=== PATIENT | female | born 1950 | race Caucasian/White ===

== ENCOUNTER → 2017-01-21 | Outpatient (CLI) | payer MEDICARE, OTHER | LOC: WI 13:02 | PROVIDERS: ATTEND Obstetrics & Gynecology Gynecology | DX: Z12.31 Encounter for screening mammogram for malignant neoplasm of breast (principal); M81.0 Age-related osteoporosis without current pathological fracture; M81.8 Other osteoporosis without current pathological fracture | CPT/HCPCS: 77080; G0202; 77067 ==

== ENCOUNTER 2017-07-28 15:45 | Day surgery (SDC) | payer MEDICARE, OTHER ==
[~2017-07-28 15:45] MED LIST: EPINEPHRINE INJ 1 MG/10 ML DISP.SYRIN ONE; FENTANYL CITRATE INJ/PF 100 MCG/2 ML AMPUL ONE; FLUMAZENIL INJ 0.5 MG/5 ML VIAL ONE; GLUCAGON,HUMAN RECOMB 1 MG INJ ONE; NALOXONE HCL INJ/PF 0.4 MG/1 ML SDV ONE
[2017-07-28] MEDS: MIDAZOLAM 2 MG/2 ML INJ ONE ×3 (17:14→17:42)
--- NOTE | 2017-07-28 18:11 | Operative Report ---
Operative Report DATE OF SURGERY: 07/28/17 Operative Report: Pre-op diagnosis: History of familial adenomatous polyposis rule out duodenal polyps Post-op diagnosis: Duodenal polyps Surgery: Esophagogastroduodenoscopy with biopsy and polypectomy Medications: Versed 4.5mg Fentanyl 100mcg IV push Tissue removed: Biopsy and polypectomy of duodenal polyps Procedure: After informed consent obtained from patient, the throat was sprayed with Hurricane and conscious sedation was achieved. The ERCP endoscope was inserted into the esophagus under direct vision and advanced into the stomach. It was difficult to navigate the duodenum with the side-viewing scope. After examination with the ERCP scope this was pulled out and replaced with the regular EGD scope. Detailed examination was performed of the proximal small bowel. Patient tolerated procedure well. Findings Esophagus: Normal Z-line at: 38 cm Antrum: Normal Body: Normal Fundus: Normal Duodenum: With a front viewing scope there was a 4-5 mm polyp noted in the second part of duodenum just beyond the bulb. This was removed with a hot snare. There was an area of irritation/mucosa break with edema vs polyp noted in the first part of duodenum. The irritation may have been caused by the side- viewing scope. Biopsy was taken to be sure this was not a polyp. Plan: Await pathology. If the first part of duodenum polyp is adenomatous EGD will be repeated with a front viewing scope. Continue PPI OPERATION: .
[2017-07-28 19:00] VITALS: BP 120/68
== END 2017-07-28 19:00 | disposition home or self-care (01) ==
LOC: END 15:45
PROVIDERS: ATTEND Internal Medicine Gastroenterology
PROC: 0DB98ZX Excision of Duodenum, Via Natural or Artificial Opening Endoscopic, Diagnostic (ICD-10-PCS; principal; 2017-07-28 16:15)
DX: K29.80 Duodenitis without bleeding (principal); K31.7 Polyp of stomach and duodenum; E11.9 Type 2 diabetes mellitus without complications; I10 Essential (primary) hypertension; Z79.899 Other long term (current) drug therapy; Z88.8 Allergy status to other drugs, medicaments and biological substances
CPT/HCPCS: 43251; 88305 ×2; J2250; J3010; 43239; J0171; J1610; J2310; J3490

== ENCOUNTER → 2017-12-08 | Outpatient (CLI) | payer MEDICARE, OTHER ==
--- NOTE | 2017-12-08 16:27 | RADIOLOGY REPORT (SQ) ---
EXAM DESCRIPTION: CAROTID DOPPLER COMPLETED DATE/TIME: 12/08/2017 4:00 pm REASON FOR STUDY: BRUIT R09.89 OTH SYMPTOMS AND SIGNS INVOLVING THE CIRC AND RESP SY COMPARISON: None. TECHNIQUE: Grayscale ultrasound, Doppler velocity and spectra, and color Doppler images acquired of the extra-cranial carotid and vertebral arteries. Images stored on PACS. LIMITATIONS: None. FINDINGS: RIGHT CAROTID CCA Velocities: Within normal limits. ICA Velocities Peak systolic 1.06 m/s. End diastolic 0.37 m/s. Proximal ICA/CCA peak systolic ratio 1.5. Spectra normal. No significant plaque. LEFT CAROTID CCA Velocities: Within normal limits. ICA Velocities Peak systolic 1.45 m/s. End diastolic 0.64 m/s. Proximal ICA/CCA peak systolic ratio 2.2. Spectra normal. No significant plaque. VERTEBRAL ARTERIES: Antegrade flow. Normal waveforms. SUBCLAVIAN ARTERIES: No finding. OTHER: No other significant finding. IMPRESSION: There is increased flow velocity in the left internal carotid artery consistent with a 5 0 to 69% stenosis. No other hemodynamically significant stenoses are identified. COMMENT: Quality ID #195: Velocity criteria are extrapolated from the diameter data as defined by t he Society of Radiologists in Ultrasound Consensus Conference. Radiology 2003: 229; 340-346. TECHNICAL DOCUMENTATION: JOB ID: [id number] [employer]- All Rights Reserved Reading location - IP/workstation name: [email or web address]
== END ==
LOC: SP 14:54
PROVIDERS: ATTEND Internal Medicine Cardiovascular Disease
DX: R09.89 Other specified symptoms and signs involving the circulatory and respiratory systems (principal)
CPT/HCPCS: 93880

== ENCOUNTER → 2018-01-25 | Outpatient (CLI) | payer MEDICARE, OTHER ==
--- NOTE | 2018-01-27 10:36 | WOMENS IMAGING REPORT ---
EXAM DESCRIPTION: 3D SCREENING MAMMO BILAT COMPLETED DATE/TIME: 01/25/2018 8:41 am REASON FOR STUDY: ROUTINE SCREENING;Z12.31 Z12.31 ENCNTR SCREEN MAMMOGRAM FOR MALIGNANT NEOPLASM OF ASHU COMPARISON: [id number] TECHNIQUE: Standard craniocaudal and mediolateral oblique views of each breast recorded using digita l acquisition and breast tomosynthesis. LIMITATIONS: None. FINDINGS: No masses, calcifications or architectural distortion. No areas of suspicion. Read with the assistance of CAD. .[facility] - R2 Cenova Version 1.3 .[facility] - R2 Cenova Version 1.3 .[facility] - R2 Cenova Version 2.4 .[facility] [place] R2 Cenova Version 2.4 .[facility] - R2 Ironmolder Version 9.2 IMPRESSION: NORMAL MAMMOGRAM. BIRADS 1. BREAST DENSITY: b. There are scattered areas of fibroglandular density. BIRAD: 1 NEGATIVE RECOMMENDATION: ROUTINE SCREENING COMMENT: The patient has been notified of the results by letter per SA requirements. Additional no tification policies are in place for contacting patient with suspicious or incomplete findings. Quality ID #225: The [employer] recommends an annual screening mammogram for women aged 40 years or over. This facility utilizes a reminder system to ensure that all patients receive reminder letters, and/or direct phone calls for appointments. This includes reminders for routine scr eening mammograms, diagnostic mammograms, or other Breast Imaging Interventions when appropriate. Th is patient will be placed in the appropriate reminder system. The [employer] (ACR) has developed recommendations for screening MRI of the breast s in certain patient populations, to be used in conjunction with mammography. Breast MRI surveillanc e may be appropriate for women with more than 20% lifetime risk of developing breast cancer as deter mined by genetic testing, significant family history of the disease, or history of mantle radiation f or Hodgkins Disease. ACR Practice Guidelines 2008. DBT Technology DBT is a type of tomographic mammography. With conventional mammography, overlapping breast tissue ma y make lesions difficult to detect, even with good compression. DBT uses an x-ray tube that rotates a round the breast, taking images at different angles. These images are then combined to create thin sl ices of the breast that the radiologist can view as a 3D reconstruction. The Digifeye unit can perform full-field digital mammograms (2D imaging); or DBT (3D imaging); or both, in a combination mode that quickly performs both the mammogram and the tomosynthesis scan while the breast is still compressed. PQRS 6045F: Fluoroscopic imaging is not utilized for breast tomosynthesis. TECHNICAL DOCUMENTATION: FINDING NUMBER: (1) ASSESSMENT: (1) JOB ID: [id number] [employer]- All Rights Reserved Reading location - IP/workstation name: [email or web address]
== END ==
LOC: WI 08:33
PROVIDERS: ATTEND Obstetrics & Gynecology Gynecology
DX: Z12.31 Encounter for screening mammogram for malignant neoplasm of breast (principal)
CPT/HCPCS: 77063; 77067

== ENCOUNTER 2018-03-14 23:06 | Observation (INO) | payer MEDICARE, OTHER ==
[2018-03-14 23:34] LABS: ABSOLUTE EOSINOPHILS # (AUTO) 0.2 10^3/uL (0.0-0.6); ABSOLUTE LYMPHOCYTES (AUTO) 2.1 10^3/uL (0.5-4.7); ABSOLUTE MONOCYTES (AUTO) 0.7 10^3/uL (0.1-1.4); ABSOLUTE NEUT (AUTO) 4.4 10^3/uL (1.7-8.2); BASOPHILS % (AUTO) 0.3 % (0-2); EOSINOPHILS % (AUTO) 3.1 % (0-6); HEMATOCRIT 39.2 % (36.0-47.0); HEMOGLOBIN 12.7 g/dL (12.0-15.5); LYMPHOCYTES % (AUTO) 28.1 % (13-45); MEAN CORPUSCULAR HEMOGLOBIN 26.2 pg (27.0-33.4); MEAN CORPUSCULAR HGB CONC 32.4 g/dL (32.0-36.0); MEAN CORPUSCULAR VOLUME 81 fl (80-97); MONOCYTES % (AUTO) 8.9 % (3-13); PLATELET COUNT 162 10^3/uL (150-450); RED BLOOD COUNT 4.86 10^6/uL (3.72-5.28); RED CELL DISTRIBUTION WIDTH 14.5 % (11.5-14.0); SEGMENTED NEUTROPHILS % (AUTO) 59.6 % (42-78); TOTAL CELLS COUNTED % (AUTO) 100 %; WHITE BLOOD COUNT 7.3 10^3/uL (4.0-10.5)
--- NOTE | 2018-03-14 23:47 | ER Document Report ---
ED Cardiac - General Mode of Arrival: Ambulatory Information source: Patient TRAVEL OUTSIDE OF THE [place] IN LAST 30 DAYS: No <JOSEPH GU - Last Filed: 03/15/18 04:15> <KARTIK MCCRACKEN - Last Filed: 03/15/18 04:16> - General Chief Complaint: Chest Pain Stated Complaint: CHEST PAIN Time Seen by Provider: 03/14/18 23:28 Notes: 67 y.o. female with HTN, palpitations, familial polyposis, colostomy bag and a PMHx of uterine cancer reports to the ED with pain to her LT breast. Pt reports that her pain is constant and describes it as more of a "soreness", denying any sharp pain or radiation to her back or upper extremities. Pt reports that she has been eating today without any change in her pain. She denies any nausea, vomiting or problems/changes in colostomy output. Pt was given 4 81mg Aspirin and 2 doses of Nitroglycerin upon arrival to the ED. She denies any relief from pain due to the Nitroglycerine. Denies any RIVERS currently. Pt's PCP is Dr. Diamond. Pt denies any Hx of DM, HLD or AL. She reports having a nuclear stress test scheduled in June with a doctor in [place]. (JOSEPH GU) - Related Data Allergies/Adverse Reactions: escitalopram oxalate [From Lexapro] Allergy (Severe, Verified 07/28/17 16:04) "THROAT CLOSING,HEAT ON NECK" Past Medical History - General Information source: Patient - Social History Smoking Status: Never Smoker Chew tobacco use (# tins/day): No Frequency of alcohol use: None Drug Abuse: None Family History: Reviewed & Not Pertinent Patient has suicidal ideation: No Patient has homicidal ideation: No - Past Medical History Cardiac Medical History: Reports: Hx Hypertension Pulmonary Medical History: Reports: Hx Pneumonia Renal/ Medical History: Denies: Hx Peritoneal Dialysis Past Surgical History: Reports: Hx Bowel Surgery, Hx Section, Hx Hysterectomy - Immunizations Hx Diphtheria, Pertussis, Tetanus Vaccination: No Hx Pneumococcal Vaccination: 12/20/13 <JOSEPH GU - Last Filed: 03/15/18 04:15> Review of Systems - Review of Systems Constitutional: No symptoms reported EENT: No symptoms reported Cardiovascular: See HPI, Other - Pain possibly to the LT chest wall/LT breast Respiratory: No symptoms reported Gastrointestinal: See HPI. denies: Nausea, Vomiting, Poor appetite - eating today Genitourinary: No symptoms reported Female Genitourinary: No symptoms reported Musculoskeletal: denies: Back pain Skin: No symptoms reported Hematologic/Lymphatic: No symptoms reported Neurological/Psychological: No symptoms reported -: Yes All other systems reviewed and negative <JOSEPH GU - Last Filed: 03/15/18 04:15> Physical Exam <JOSEPH GU - Last Filed: 03/15/18 04:15> <KARTIK MCCRACKEN - Last Filed: 03/15/18 04:16> - Vital signs Vitals: Pulse Ox 97 03/14/18 23:17 - Notes Notes: PHYSICAL EXAM GENERAL: Alert, interacts well. No acute distress. HEAD: Normocephalic, atraumatic. EYES: Pupils equal, round, and reactive to light. Extraocular movements intact. ENT: Oral mucosa moist, tongue midline. NECK: Full range of motion. Supple. Trachea midline. LUNGS: Clear to auscultation bilaterally, no wheezes, rales, or rhonchi. No respiratory distress. HEART: Regular rate and rhythm. No murmurs, gallops, or rubs. TTP across her anterior LT sided rib cage, approximately ribs 8 and 9 in the midclavicular line. ABDOMEN: Colostomy in good position to the RT side of Abd. Scars consistent with prior surgeries. Cachectic. Soft, non-tender. Non-distended. Bowel sounds present in all 4 quadrants. No guarding, rebound, or rigidity. EXTREMITIES: Moves all 4 extremities spontaneously. No edema, radial and dorsalis pedis pulses 2/4 bilaterally. No cyanosis. NEUROLOGICAL: Alert and oriented x3. Normal speech. PSYCH: Normal affect, normal mood. SKIN: Warm, dry, normal turgor. No rashes or lesions noted. (JOSEPH GU) Course - Laboratory Result Diagrams: 03/14/18 22:49 03/14/18 22:49 <JOSEPH GU - Last Filed: 03/15/18 04:15> - Laboratory Result Diagrams: 03/14/18 22:49 03/14/18 22:49 <KARTIK MCCRACKEN - Last Filed: 03/15/18 04:16> - Re-evaluation Re-evalutation: 03/15/18 01:22 CBC unremarkable, CMP grossly unremarkable, cardiac enzymes negative, chest x- ray negative, EKG is nonischemic. Patient has moderate risk factors including family history, hypertension and known carotid plaques. Patient was discussed with Dr. Lyon who will bring the patient under observation status for chest pain rule out. (KARTIK MCCRACKEN) - Vital Signs Vital signs: Temp Pulse Resp BP Pulse Ox 98.2 F 73 16 138/88 H 98 03/15/18 03:20 03/15/18 03:20 03/15/18 03:20 03/15/18 03:20 03/15/18 03:20 - Laboratory Laboratory results interpreted by me: 03/14/18 03/14/18 22:49 22:49 MCH 26.2 L RDW 14.5 H Glucose 120 H Calcium 10.4 H AST 38 H Alkaline Phosphatase 131 H - EKG Interpretation by Me Additional EKG results interpreted by me: 03/15/18 01:22 EKG shows sinus rhythm at a rate of 90, 1 PVC, no ST segment elevations or depressions, nonspecific T-wave inversions in lead III, flattening in aVF, no ST segment elevations or depressions, borderline R-wave progression becomes isoelectric in V4 per my interpretation. (KARTIK MCCRACKEN) Discharge <JOSEPH GU - Last Filed: 03/15/18 04:15> - Discharge Admitting Provider: Alan - [facility] Unit Admitted: Telemetry <KARTIK MCCRACKEN - Last Filed: 03/15/18 04:16> - Discharge Clinical Impression: Chest pain, rule out acute myocardial infarction, Familial adenomatous polyposis Condition: Good Disposition: ADMITTED OBSERVATION Scribe Attestation: 03/15/18 04:16 I personally performed the services described in the documentation, reviewed and edited the documentation which was dictated to the scribe in my presence, and it accurately records my words and actions. (KARTIK MCCRACKEN) Scribe Documentation - Scribe Written by Vero:: Vero Ruff 03/14/18 [id number] acting as scribe for :: Yunier <JOSEPH GU - Last Filed: 03/15/18 04:15>
[2018-03-14 23:48] LABS: ALANINE AMINOTRANSFERASE 44 U/L (9-52); ALBUMIN 4.3 g/dL (3.5-5.0); ALKALINE PHOSPHATASE 131 U/L (38-126); ANION GAP 11 (5-19); ASPARTATE AMINO TRANSFERASE 38 U/L (14-36); BILIRUBIN,DIRECT 0.2 mg/dL (0.0-0.4); BILIRUBIN,TOTAL 0.6 mg/dL (0.2-1.3); BLOOD UREA NITROGEN 20 mg/dL (7-20); CALCIUM 10.4 mg/dL (8.4-10.2); CARBON DIOXIDE 25 mmol/L (22-30); CHLORIDE 107 mmol/L (98-107); CREATINE KINASE 80 U/L (30-135); GLUCOSE 120 mg/dL (75-110); POTASSIUM 4.4 mmol/L (3.6-5.0); SODIUM 143.2 mmol/L (137-145); TOTAL PROTEIN 7.2 g/dL (6.3-8.2)
[2018-03-15] LABS: CREATINE KINASE MB 2.16 ng/mL (<4.55)
--- NOTE | 2018-03-15 00:02 | EKG REPORT ---
SEVERITY:- ABNORMAL ECG - SINUS ARRHYTHMIA, RATE 82-99 VENTRICULAR PREMATURE COMPLEX CONSIDER RIGHT VENTRICULAR HYPERTROPHY BORDERLINE R WAVE PROGRESSION, ANTERIOR LEADS : Confirmed by: Jolly Gee 15-Mar-2018 00:01:08
[2018-03-15 00:03] LABS: TROPONIN I < 0.012 ng/mL
[2018-03-15] MEDS ORDERED: NITROGLYCERIN 0.4 MG/TAB 25 TAB/BOTTLE SL PRN (01:23)
--- NOTE | 2018-03-15 03:19 | RADIOLOGY REPORT (SQ) ---
EXAM DESCRIPTION: XR CHEST 1 VIEW COMPLETED DATE/TME: 03/14/2018 23:12 CLINICAL HISTORY: 67 years Female, cp COMPARISON: 8.23.15 NUMBER OF VIEWS/TECHNIQUE: 1/AP FINDINGS: Emphysematous increased lung volume, clear parenchyma, normal cardiac silhouette, and intact bony thorax. IMPRESSION: No acute cardiopulmonary findings.
[2018-03-15 05:58] LABS: CHOLESTEROL 117.09 mg/dL (0-200); TRIGLYCERIDES 45 mg/dL (<150)
[2018-03-15 06:09] LABS: CREATINE KINASE MB 1.41 ng/mL (<4.55); DIRECT LDL 32 mg/dL (<100)
[2018-03-15 06:16] LABS: TROPONIN I < 0.012 ng/mL
--- NOTE | 2018-03-15 06:49 | PDOC H&P ---
History of Present Illness Admission Date/PCP: 03/15/18 01:27 DARIA ENG MD Patient complains of: Left-sided chest pain History of Present Illness: FRANCOIS WOOD is a 67 year old female with history of hypertension, depression, dyslipidemia and familial polyposis status post colectomy with colostomy. Patient presents with 6 hours of left-sided reproducible chest pain which is dull in nature worsened by deep breathing and movement associated with shortness of breath, no nausea vomiting or palpitations. Pain is persistent 2 out of 5 intensity. She denies previous episode or change in medications. Past Medical History Cardiac Medical History: Reports: Hypertension Pulmonary Medical History: Reports: Pneumonia Neurological Medical History: Denies: Seizures Psychiatric Medical History: Denies: Depression Hematology: Denies: Anemia Past Surgical History Past Surgical History: Reports: Section, Hysterectomy Social History Information Source: Patient, [facility] Records Smoking Status: Never Smoker Frequency of Alcohol Use: None Hx Recreational Drug Use: No Drugs: None Hx Prescription Drug Abuse: No - Advance Directive Resuscitation Status: Full Code Family History Family History: CAD, Other - Familial polyposis Parental Family History Reviewed: Yes Children Family History Reviewed: Yes Sibling(s) Family History Reviewed.: Yes Medication/Allergy Home Medications: Alendronate Sodium [Fosamax 10 Mg Tablet] 30 mg PO ASDIR PRN 10/31/14 Cholecalciferol (Vitamin D3) [Vitamin D3 5000 unit Capsule] 5,000 unit PO DAILY 10/31/14 Latanoprost [Xalatan 0.005% Oph Soln 2.5 ml] 1 drop OP QAM 10/31/14 Multivitamin [Multivitamins] 1 each PO DAILY 10/31/14 Atorvastatin Calcium 10 mg PO DAILY 07/27/17 Allergies/Adverse Reactions: escitalopram oxalate [From Lexapro] Allergy (Severe, Verified 07/28/17 16:04) "THROAT CLOSING,HEAT ON NECK" Review of Systems Constitutional: ABSENT: chills, fever(s), headache(s), weight gain, weight loss Eyes: ABSENT: visual disturbances Ears: ABSENT: hearing changes Cardiovascular: ABSENT: chest pain, dyspnea on exertion, edema, orthropnea, palpitations Respiratory: ABSENT: cough, hemoptysis Gastrointestinal: ABSENT: abdominal pain, constipation, diarrhea, hematemesis, hematochezia, nausea, vomiting Genitourinary: ABSENT: dysuria, hematuria Musculoskeletal: ABSENT: joint swelling Integumentary: ABSENT: rash, wounds Neurological: ABSENT: abnormal gait, abnormal speech, confusion, dizziness, focal weakness, syncope Psychiatric: ABSENT: anxiety, depression, homidical ideation, suicidal ideation Endocrine: ABSENT: cold intolerance, heat intolerance, polydipsia, polyuria Hematologic/Lymphatic: ABSENT: easy bleeding, easy bruising Physical Exam Vital Signs: Temp Pulse Resp BP Pulse Ox 98.2 F 73 16 138/88 H 98 03/15/18 03:20 03/15/18 03:20 03/15/18 03:20 03/15/18 03:20 03/15/18 03:20 Intake & Output 03/13/18 03/14/18 03/15/18 11:59 11:59 11:59 Weight 39.9 kg General appearance: PRESENT: no acute distress, well-developed, well-nourished Head exam: PRESENT: atraumatic, normocephalic Eye exam: PRESENT: conjunctiva pink, EOMI, PERRLA. ABSENT: scleral icterus Ear exam: PRESENT: normal external ear exam Mouth exam: PRESENT: moist, tongue midline Neck exam: ABSENT: carotid bruit, JVD, lymphadenopathy, thyromegaly Respiratory exam: PRESENT: clear to auscultation emil. ABSENT: rales, rhonchi, wheezes Cardiovascular exam: PRESENT: RRR, other - Chest wall pain to intercostal musculature anteriorly. ABSENT: diastolic murmur, rubs, systolic murmur Pulses: PRESENT: normal dorsalis pedis pul Vascular exam: PRESENT: normal capillary refill GI/Abdominal exam: PRESENT: normal bowel sounds, soft. ABSENT: distended, guarding, mass, organolmegaly, rebound, tenderness Rectal exam: PRESENT: deferred Extremities exam: PRESENT: full ROM. ABSENT: calf tenderness, clubbing, pedal edema Neurological exam: PRESENT: alert, awake, oriented to person, oriented to place , oriented to time, oriented to situation, CN II-XII grossly intact. ABSENT: motor sensory deficit Psychiatric exam: PRESENT: appropriate affect, normal mood. ABSENT: homicidal ideation, suicidal ideation Skin exam: PRESENT: dry, intact, warm. ABSENT: cyanosis, rash Results Laboratory Results: 03/15/18 05:04 Triglycerides 45 Cholesterol 117.09 LDL Cholesterol Direct 32 VLDL Cholesterol 9.0 L HDL Cholesterol 76 03/15/18 05:04 CK-MB (CK-2) 1.41 Troponin I < 0.012 Impressions: Chest X-Ray 03/14/18 23:12 IMPRESSION: No acute cardiopulmonary findings. Assessment & Plan - Diagnosis (1) Chest pain, rule out acute myocardial infarction Is this a current diagnosis for this admission?: Yes Plan: Chest pain care set, stress test (2) Hypertension Is this a current diagnosis for this admission?: Yes Plan: Optimize ELMER inhibitor (3) Dyslipidemia Is this a current diagnosis for this admission?: Yes Plan: Follow-up lipid profile - Time Time Spent: 30 to 50 Minutes - Inpatient Certification Medical Necessity: Need Close Monitoring Due to Risk of Patient Decompensation
[2018-03-15 08:24] VITALS: BP 150/75
[2018-03-15 09:12] LABS: CREATINE KINASE MB 1.49 ng/mL (<4.55)
[2018-03-15 09:13] LABS: TROPONIN I < 0.012 ng/mL
[2018-03-15] MEDS ORDERED: ATORVASTATIN CALCIUM 10 MG TABLET PO SCH (10:00)
[2018-03-15] MEDS ORDERED: REGADENOSON INJ 0.4 MG/5 ML DISP.SYRIN IV ONE (11:29)
--- NOTE | 2018-03-15 13:35 | PDOC DISCHARGE SUMMARY ---
General - Admit/Disc Date/PCP Admission Date/Primary Care Provider: 03/15/18 01:27 DARIA ENG MD Discharge Date: 03/15/18 - Discharge Diagnosis (1) Costochondral chest pain Is this a current diagnosis for this admission?: Yes (2) Dyslipidemia Is this a current diagnosis for this admission?: Yes (3) Hypertension Is this a current diagnosis for this admission?: Yes (4) Malnutrition of moderate degree Is this a current diagnosis for this admission?: Yes - Additional Information Resuscitation Status: Full Code Discharge Diet: Cardiac Discharge Activity: Activity As Tolerated Home Medications: Latanoprost [Xalatan 0.005% Oph Soln 2.5 ml] 1 drop OP QAM 10/31/14 Multivitamin [Multivitamins] 1 each PO Q2D 10/31/14 Atorvastatin Calcium 10 mg PO QHS 07/27/17 Lansoprazole [Prevacid] 30 mg PO DAILY 03/15/18 Magnesium Oxide [Magnesium] 400 mg PO Q2D 03/15/18 Valsartan [Diovan 40 mg Tablet] 20 mg PO Q12 03/15/18 History of Present Illness Patient complains of: Chest pain History of Present Illness: FRANCOIS WOOD is a 67 year old female with history of hypertension, depression, dyslipidemia and familial polyposis status post colectomy with colostomy. Patient presents with 6 hours of left-sided reproducible chest pain which is dull in nature worsened by deep breathing and movement associated with shortness of breath, no nausea vomiting or palpitations. Pain is persistent 2 out of 5 intensity. Hospital Course Hospital Course: Patient was admitted with chest pain to rule out an acute coronary syndrome. Was monitored on telemetry. Serial cardiac enzymes were done which were negative and she subsequently had a stress test done which has also been no reported negative. Her chest pain has been relieved and it is thought that the chest pain is likely secondary to costochondral origin as she had been moving boxes recently. Patient has remained hemodynamically stable and with a negative stress test and no further interventions been planned she is been discharged back home. She has been advised to follow-up with her primary care physician especially if chest pain persists Physical Exam Vital Signs: Temp Pulse Resp BP Pulse Ox 98.2 F 72 12 150/75 H 100 03/15/18 07:46 03/15/18 07:46 03/15/18 07:46 03/15/18 07:46 03/15/18 07:46 Intake & Output 03/14/18 03/15/18 03/16/18 06:59 06:59 06:59 Weight 39.9 kg General appearance: PRESENT: no acute distress, thin Head exam: PRESENT: atraumatic, normocephalic Eye exam: PRESENT: conjunctiva pink, EOMI, PERRLA. ABSENT: scleral icterus Ear exam: PRESENT: normal external ear exam Mouth exam: PRESENT: moist, tongue midline Neck exam: ABSENT: carotid bruit, JVD, lymphadenopathy, thyromegaly Respiratory exam: PRESENT: clear to auscultation emil. ABSENT: rales, rhonchi, wheezes Cardiovascular exam: PRESENT: RRR. ABSENT: diastolic murmur, rubs, systolic murmur Pulses: PRESENT: normal dorsalis pedis pul Vascular exam: PRESENT: normal capillary refill GI/Abdominal exam: PRESENT: normal bowel sounds, soft. ABSENT: distended, guarding, mass, organolmegaly, rebound, tenderness Rectal exam: PRESENT: deferred Extremities exam: PRESENT: full ROM. ABSENT: calf tenderness, clubbing, pedal edema Neurological exam: PRESENT: alert, awake, oriented to person, oriented to place , oriented to time, oriented to situation, CN II-XII grossly intact. ABSENT: motor sensory deficit Psychiatric exam: PRESENT: anxious, appropriate affect, normal mood. ABSENT: homicidal ideation, suicidal ideation Skin exam: PRESENT: dry, intact, warm. ABSENT: cyanosis, rash Results Laboratory Results: 03/15/18 05:04 Triglycerides 45 Cholesterol 117.09 LDL Cholesterol Direct 32 VLDL Cholesterol 9.0 L HDL Cholesterol 76 03/15/18 03/15/18 05:04 08:39 CK-MB (CK-2) 1.41 1.49 Troponin I < 0.012 < 0.012 Impressions: Chest X-Ray 03/14/18 23:12 IMPRESSION: No acute cardiopulmonary findings. Qualifiers - * PATIENT BEING DISCHARGED WITH ANY OF THE FOLLOWING DIAGNOSIS: No Plan Time Spent: Less than 30 Minutes
== END 2018-03-15 13:30 | disposition home or self-care (01) ==
LOC: ER 23:06 → EH 03-15 01:27 → 4N 03-15 03:15
PROVIDERS: ADMIT Internal Medicine; ATTEND Internal Medicine
DX: R07.1 Chest pain on breathing (principal); E78.5 Hyperlipidemia, unspecified; I10 Essential (primary) hypertension; E44.0 Moderate protein-calorie malnutrition; D12.6 Benign neoplasm of colon, unspecified; Z68.1 Body mass index [BMI] 19.9 or less, adult; Z79.899 Other long term (current) drug therapy; Z93.3 Colostomy status; Z90.49 Acquired absence of other specified parts of digestive tract; Z84.81 Family history of carrier of genetic disease; Z85.42 Personal history of malignant neoplasm of other parts of uterus; Z87.01 Personal history of pneumonia (recurrent); Z82.49 Family history of ischemic heart disease and other diseases of the circulatory system; Z90.710 Acquired absence of both cervix and uterus
CPT/HCPCS: 93005; 99285; 36415 ×2; 82553 ×2; 82550; 85025; 80053; 84484 ×2; 80061; 93017; 71045; 78452; 93010; A9500; J2785

== ENCOUNTER 2018-09-28 14:40 | Day surgery (SDC) | payer MEDICARE, OTHER ==
[2018-09-28] MEDS ORDERED: DIPHENHYDRAMINE HCL 50 MG/ML VIAL ONE (14:56)
[2018-09-28] MEDS ORDERED: FENTANYL CITRATE INJ/PF 100 MCG/2 ML AMPUL ONE (14:56)
[2018-09-28] MEDS ORDERED: ONDANSETRON HCL INJ/PF 4 MG/2 ML SDV ONE (14:56)
[2018-09-28] MEDS ORDERED: GLUCAGON,HUMAN RECOMB 1 MG INJ ONE (14:57)
[2018-09-28] MEDS ORDERED: EPINEPHRINE INJ 1 MG/10 ML DISP.SYRIN ONE (14:57)
[2018-09-28] MEDS ORDERED: FLUMAZENIL INJ 0.5 MG/5 ML VIAL ONE (14:57)
[2018-09-28] MEDS ORDERED: NALOXONE HCL INJ/PF 0.4 MG/1 ML SDV ONE (14:57)
[2018-09-28] MEDS: MIDAZOLAM 2 MG/2 ML INJ ONE ×2 (15:47→15:53)
--- NOTE | 2018-09-28 16:49 | Operative Report ---
Operative Report DATE OF SURGERY: 09/28/18 Operative Report: Pre-op diagnosis: History of family adenomatous polyposis and duodenal polyp.GERD Post-op diagnosis: Normal EGD Surgery: Esophagogastroduodenoscopy using an ERCP scope with biopsy Medications: Versed 3mg Fentanyl 100mcg IV push Tissue removed: Antral biopsy for pathology Procedure: After informed consent obtained from patient, the throat was sprayed with Hurricane and conscious sedation was achieved. The ERCP endoscope was inserted into the esophagus blindly and advanced into the stomach. The duodenum was entered and examined to the second part. Endoscope was then slowly pulled out of the patient as the mucosa was examined into details. Patient tolerated procedure well. Findings Esophagus: Normal Antrum: Normal Body: Normal Fundus: Normal Duodenum first part: Normal Duodenum second part: The bile duct opening was identified with bile flowing out of it. There was evidence for previous ampullectomy Plan: Await pathology. OPERATION: .
[2018-09-28 17:13] VITALS: BP 134/75
== END 2018-09-28 17:14 | disposition home or self-care (01) ==
LOC: END 14:40
PROVIDERS: ATTEND Internal Medicine Gastroenterology
DX: K29.50 Unspecified chronic gastritis without bleeding (principal); Z87.19 Personal history of other diseases of the digestive system; Z09 Encounter for follow-up examination after completed treatment for conditions other than malignant neoplasm
CPT/HCPCS: 43239; 88342 ×2; 88305 ×2; J2250; J3010; J0171; J1200; J1610; J2310; J2405; J3490

== ENCOUNTER → 2018-11-23 | Outpatient (CLI) | payer MEDICARE, OTHER ==
--- NOTE | 2018-11-23 16:16 | RADIOLOGY REPORT (SQ) ---
EXAM DESCRIPTION: CAROTID DOPPLER COMPLETED DATE/TIME: 11/23/2018 3:35 pm REASON FOR STUDY: BRUIT R09.89 OTH SYMPTOMS AND SIGNS INVOLVING THE CIRC AND RESP SY COMPARISON: Bilateral carotid Doppler 12/08/2017 TECHNIQUE: Grayscale ultrasound, Doppler velocity and spectra, and color Doppler images acquired of the extra-cranial carotid and vertebral arteries. Images stored on PACS. LIMITATIONS: None. FINDINGS: RIGHT CAROTID CCA Velocities: Within normal limits. Right common carotid artery peak systolic velocity 0.64 m/sec ICA Velocities Peak systolic 0.45 m/s. End diastolic 0.19 m/s. Proximal ICA/CCA peak systolic ratio normal. Spectra normal. No significant plaque. LEFT CAROTID CCA Velocities: Within normal limits. Left common carotid artery peak systolic velocity 0.9 m/sec ICA Velocities Peak systolic 0.51 m/s. End diastolic 0.2 m/s. Proximal ICA/CCA peak systolic ratio normal. Spectra normal. No significant plaque. VERTEBRAL ARTERIES: Antegrade flow. Normal waveforms. SUBCLAVIAN ARTERIES: Not evaluated OTHER: No other significant finding. IMPRESSION: NO HEMODYNAMICALLY SIGNIFICANT STENOSIS. COMMENT: Quality ID #195: Velocity criteria are extrapolated from the diameter data as defined by t he Society of Radiologists in Ultrasound Consensus Conference. Radiology 2003: 229; 340-346. TECHNICAL DOCUMENTATION: JOB ID: [id number] [employer]- All Rights Reserved Reading location - IP/workstation name: [email or web address]
== END ==
LOC: SP 17:04
PROVIDERS: ATTEND Internal Medicine Cardiovascular Disease
DX: R09.89 Other specified symptoms and signs involving the circulatory and respiratory systems (principal)
CPT/HCPCS: 93880

== ENCOUNTER 2019-01-25 02:25 | Emergency (ER) | payer MEDICARE, OTHER ==
[2019-01-25] MEDS ORDERED: KETOROLAC TROMETHAMINE INJ/PF 30 MG/1 ML SDV IV ONE ×2 (03:22→05:02)
[2019-01-25] MEDS ORDERED: ONDANSETRON HCL INJ/PF 4 MG/2 ML SDV IV ONE (03:22)
[2019-01-25] MEDS ORDERED: NORMAL SALINE 500 ML IV ONE (03:22)
--- NOTE | 2019-01-25 03:25 | ER Document Report ---
ED General - General Chief Complaint: Flank Pain Stated Complaint: RIGHT FLANK PAIN Time Seen by Provider: 01/25/19 03:19 Primary Care Provider: SOLE BELL MD [NO LOCAL MD] - Follow up as needed Notes: Patient is a pleasant 68-year-old female presents with complaint of right flank pain. Some nausea. No vomiting. She has a history of kidney stones and using her left side. She said this feels just like her previous kidney stone. States she has had some pressure with urination the last few days but no pain until tonight. No fevers. She does have a colostomy. Says colostomy has been there for 34 years. TRAVEL OUTSIDE OF THE [place] IN LAST 30 DAYS: No - Related Data Allergies/Adverse Reactions: escitalopram oxalate [From LexaprPerficient] Allergy (Severe, Verified 09/28/18 14:50) "THROAT CLOSING,HEAT ON NECK" Past Medical History - Social History Smoking Status: Never Smoker Frequency of alcohol use: None Drug Abuse: None Family History: CAD, Other Patient has suicidal ideation: No Patient has homicidal ideation: No - Past Medical History Cardiac Medical History: Reports: Hx Coronary Artery Disease, Hx Hypertension - HX. OF Denies: Hx Heart Attack Pulmonary Medical History: Reports: Hx Pneumonia - OVER 3 YRS AGO Denies: Hx Asthma, Hx Bronchitis, Hx COPD Neurological Medical History: Denies: Hx Cerebrovascular Accident, Hx Seizures Renal/ Medical History: Denies: Hx Peritoneal Dialysis Musculoskeletal Medical History: Denies Hx Arthritis Psychiatric Medical History: Denies: Hx Depression Past Surgical History: Reports: Hx Bowel Surgery, Hx Section, Hx Hysterectomy - Immunizations Hx Diphtheria, Pertussis, Tetanus Vaccination: No Hx Pneumococcal Vaccination: 12/20/13 Review of Systems - Review of Systems Notes: My Normal Review Basic REVIEW OF SYSTEMS: CONSTITUTIONAL : Denies fever, chills, or sweats. Denies recent illness. CARDIOVASCULAR: Denies chest pain. RESPIRATORY: Denies cough, cold, or chest congestion. Denies shortness of breath, difficulty breathing, or wheezing. GASTROINTESTINAL: Right Flank pain. Nausea but no vomiting. GENITOURINARY: Denies difficulty urinating, painful urination, burning, frequency, or blood in urine. MUSCULOSKELETAL: Denies neck or back pain or joint pain or swelling. SKIN: Denies rash or skin lesions. NEUROLOGICAL: Denies altered mental status or loss of consciousness. Denies headache. Denies weakness or paralysis or loss of use of either side. Denies problems with gait or speech. Denies sensory or motor loss. ALL OTHER SYSTEMS REVIEWED AND NEGATIVE. Physical Exam - Vital signs Vitals: Temp Resp Pulse Ox 97.7 F 18 97 01/25/19 02:29 01/25/19 02:29 01/25/19 02:29 - Notes Notes: General Appearance: Well nourished, alert, cooperative, no acute distress, moderate obvious discomfort. Vitals: reviewed, See vital signs table. Head: no swelling or tenderness to the head Eyes: PERRL, EOMI, Conjuctiva clear Lungs: No wheezing, No rales, No rhonci, No accessory muscle use, good air exchange bilaterally. Heart: Normal rate, Regular rythm, No murmur, no rub Abdomen: Normal BS, soft, No rigidity, no significant tenderness to palpation of the abdomen. Pain on the flank is not made worse with palpation., No guarding, no rebound, no abdominal masses, no organomegaly Extremities: good pulses in all extremities, no swelling or tenderness in the extremities, no edema. Skin: warm, dry, appropriate color, no rash Neuro: speech clear, oriented x 3, normal affect, responds appropriately to questions. Course - Re-evaluation Re-evalutation: 01/25/19 04:37 Patient says her pain continues well controlled. CT scan does confirm a centimeter kidney stone on the right side. Urine has a few white blood cells in it however she does not have nitrites, she only has trace bacteria in urine, she does not have significant leukocyte esterace, she does not have a leukocytosis and a blood work, she is afebrile. I therefore do not suspect infected kidney stone at this time. Still send her urine for culture to make sure it does not grow anything. I informed the patient that she must have a low threshold to return to ER if she has intractable pain, rectal vomiting, fevers, or any signs of infection. Informed her to call the urologist office to make a close follow- up appointment. Patient agrees with plan will be discharged home. Dictation of this chart was performed using voice recognition software; therefore, there may be some unintended grammatical errors. - Vital Signs Vital signs: Temp Pulse Resp BP Pulse Ox 97.7 F 18 141/78 H 99 01/25/19 02:29 01/25/19 02:29 01/25/19 02:31 01/25/19 02:31 - Laboratory Result Diagrams: 01/25/19 02:33 01/25/19 02:33 Laboratory results interpreted by me: 01/25/19 01/25/19 01/25/19 02:33 02:33 02:40 Hgb 11.7 L MCH 26.3 L RDW 14.4 H Potassium 3.4 L Chloride 110 H BUN 21 H Glucose 146 H AST 39 H Total Protein 5.8 L Albumin 3.2 L Urine Protein 100 H Urine Blood MODERATE H Ur Leukocyte Esterase SMALL H Discharge - Discharge Clinical Impression: Kidney stone on right side Condition: Good Disposition: HOME, SELF-CARE Additional Instructions: Your CT scan confirms that you have a kidney stone on the right side. Your kidney stone is 7 mm. It is possible you could pass the stone on your own, but is also possible that you may have a hard time passing this on your own. I therefore have given you the number to [facility] urology. The phone number is under the name Garry Lyon on your discharge paperwork. Please call this number and inform them that you would like an appointment at the [place] office. Please have a very low threshold to return to the ER if you have pain that is not controlled by the pain medicine we have prescribed you, if you have vomiting, fevers, or if you feel you are worsening in any way. Please be aware that [place] does have Tylenol (acetaminophen) in it. Please make sure you do not take more than 4000 mg of acetaminophen a day. Do not drive or care for children after you have taken this medication they will make you sleepy and sometimes impair judgment. Prescriptions: Hydrocodone/Acetaminophen [[place] 5-325 mg Tablet] 1 tab PO Q4 PRN #16 tablet PRN Reason: For Breakthrough Pain Ondansetron [Zofran Odt 4 mg Tablet] 1 tab PO Q4H PRN #15 tab.rapdis PRN Reason: For Nausea/Vomiting Tamsulosin HCl [Flomax 0.4 mg Cap.sr] 0.4 mg PO DAILY #7 cap.sr.24h Forms: Return to Work Referrals: GARRY LYON MD [NO LOCAL MD] - Follow up in 3-5 days
[2019-01-25 03:30] LABS: ABSOLUTE EOSINOPHILS # (AUTO) 0.4 10^3/uL (0.0-0.6); ABSOLUTE LYMPHOCYTES (AUTO) 2.8 10^3/uL (0.5-4.7); ABSOLUTE MONOCYTES (AUTO) 0.7 10^3/uL (0.1-1.4); ABSOLUTE NEUT (AUTO) 4.1 10^3/uL (1.7-8.2); BASOPHILS % (AUTO) 0.4 % (0-2); EOSINOPHILS % (AUTO) 5.3 % (0-6); HEMATOCRIT 36.3 % (36.0-47.0); HEMOGLOBIN 11.7 g/dL (12.0-15.5); LYMPHOCYTES % (AUTO) 35.1 % (13-45); MEAN CORPUSCULAR HEMOGLOBIN 26.3 pg (27.0-33.4); MEAN CORPUSCULAR HGB CONC 32.3 g/dL (32.0-36.0); MEAN CORPUSCULAR VOLUME 81 fl (80-97); MONOCYTES % (AUTO) 8.1 % (3-13); PLATELET COUNT 162 10^3/uL (150-450); RED BLOOD COUNT 4.46 10^6/uL (3.72-5.28); RED CELL DISTRIBUTION WIDTH 14.4 % (11.5-14.0); SEGMENTED NEUTROPHILS % (AUTO) 51.1 % (42-78); TOTAL CELLS COUNTED % (AUTO) 100 %; WHITE BLOOD COUNT 8.1 10^3/uL (4.0-10.5)
[2019-01-25 03:38] LABS: ALANINE AMINOTRANSFERASE 45 U/L (9-52); ALBUMIN 3.2 g/dL (3.5-5.0); ALKALINE PHOSPHATASE 121 U/L (38-126); ANION GAP 7 (5-19); ASPARTATE AMINO TRANSFERASE 39 U/L (14-36); BILIRUBIN,DIRECT 0.2 mg/dL (0.0-0.4); BILIRUBIN,TOTAL 0.4 mg/dL (0.2-1.3); BLOOD UREA NITROGEN 21 mg/dL (7-20); CALCIUM 9.8 mg/dL (8.4-10.2); CARBON DIOXIDE 23 mmol/L (22-30); CHLORIDE 110 mmol/L (98-107); GLUCOSE 146 mg/dL (75-110); POTASSIUM 3.4 mmol/L (3.6-5.0); SODIUM 140.2 mmol/L (137-145); TOTAL PROTEIN 5.8 g/dL (6.3-8.2)
[2019-01-25 03:39] LABS: APPEARANCE,URINE SLIGHTLY-CLOUDY; BILIRUBIN,URINE NEGATIVE (NEGATIVE); COLOR,URINE YELLOW; GLUCOSE, URINE NEGATIVE (NEGATIVE); KETONES,URINE NEGATIVE (NEGATIVE); LEUKOCYTE ESTERASE,URINE SMALL (NEGATIVE); NITRITE,URINE NEGATIVE (NEGATIVE); PROTEIN,URINE 100 mg/dL (NEGATIVE); URINE SPECIFIC GRAVITY 1.017; UROBILINOGEN,URINE NEGATIVE mg/dL (<2.0)
--- NOTE | 2019-01-25 04:15 | RADIOLOGY REPORT (SQ) ---
EXAM DESCRIPTION: CT ABDOMEN PELVIS WITHOUT IV CONTRAST COMPLETED DATE/TME: 01/25/2019 03:23 CLINICAL HISTORY: 68 years Female, right flank pain, Hx of colostomy Comparison: None. Technique: No contrast. Coronal and sagittal reformat. This exam was performed according to our departmental dose-optimization program, which includes automated exposure control, adjustment of the mA and/or kV according to patient size and/or use of iterative reconstruction technique.[facility]: Dose Right [facility]: CareDose [facility]: Dose Right [facility]: Teradose 4D [facility]: [employer] LIMITATIONS: None Findings: 0.7 x 0.4 x 0.3 cm right UVJ/bladder stone with mild right hydronephrosis and small right perinephric fat stranding. Small fluid inferior to the right kidney. Bilateral punctate nephrolithiasis. Likely benign renal cyst(s), not definitively characterized. Disc desiccation. Surgical clips of the left paracentral abdomen and throughout the pelvis. Developmental posterior medial angulation of bilateral, anterior lower ribs. Bowel ostomy at the right lower abdominal quadrant. No bowel obstruction. Small disc bulge at the L2-L3 and L5-S1 levels. Enostoses. Unenhanced lower thorax, abdominopelvic structures, and musculoskeleton appear otherwise grossly unremarkable. Impression: 0.7 cm right UVJ stone with low-grade obstruction.
[2019-01-25] MEDS ORDERED: ONDANSETRON ODT 4 MG TAB (6 TAB/ER DISP) PO PRN (04:21)
[2019-01-25] MEDS ORDERED: HYDROCODONE/ACETAMINOPHEN 5-325 MG (6 TAB/ER DISP) PO PRN (04:21)
[2019-01-25] MEDS ORDERED: TAMSULOSIN HCL 0.4 MG CAP.SR.24H PO ONE (04:33)
[2019-01-25 04:58] VITALS: BP 137/72
== END 2019-01-25 06:29 | disposition home or self-care (01) ==
LOC: ER 02:25
DX: N20.0 Calculus of kidney (principal); R10.9 Unspecified abdominal pain; R11.0 Nausea; I25.10 Atherosclerotic heart disease of native coronary artery without angina pectoris; I10 Essential (primary) hypertension; Z87.442 Personal history of urinary calculi; Z90.710 Acquired absence of both cervix and uterus
CPT/HCPCS: 96376; 99284; 96361; 96374; 96375; 36415; 87086; 85025; 80053; 81001; 74176; J1885; A9270 ×3; J2405; J7040

== ENCOUNTER → 2019-08-05 | Outpatient (CLI) | payer MEDICARE, OTHER ==
--- NOTE | 2019-08-05 08:30 | WOMENS IMAGING REPORT ---
EXAM DESCRIPTION: BONE DENSITY HIP/SPINE COMPLETED DATE/TIME: 08/05/2019 8:13 am REASON FOR STUDY: Z78.0 BONE DENSITY Z12.31 ENCNTR SCREEN MAMMOGRAM FOR MALIGNANT NEOPLASM OF ASHU Z 78.0 ASYMPTOMATIC MENOPAUSAL STATE COMPARISON: 01/21/2017 TECHNIQUE: Dual-Energy X-ray Absorptiometry (DEXA) of the AP Spine and Hip. LIMITATIONS: None. FINDINGS: LUMBAR SPINE: The bone mineral density (BMD) measured from L1-L4 in the AP projection correlates with a T-score of -2.2, which is osteopenia as defined by the World Health Organization. There has been a -0.7% change since baseline. HIP: The bone mineral density (BMD) measured in the left hip correlates with a T-score of -2.8, which is o steoporosis as defined by the World Health Organization. There is been a -5.2% change from baseline. IMPRESSION: 1. LUMBAR SPINE: OSTEOPENIA. 2. HIP: OSTEOPOROSIS. COMMENT: The World Health Organization defines low BMD as follows: T-score: Normal: Greater than -1.0 Osteopenia: Between -1.0 and -2.5 Osteoporosis: Less than -2.5 without fractures Established osteoporosis: Less than -2.5 with fractures In general, you may wish to consider: Diagnosis Treatment Follow-up DEXA Normal BMD Prevention 2-3 years Osteopenia Prevention/Therapy 1-2 years Osteoporosis Therapy Yearly TECHNICAL DOCUMENTATION: JOB ID: [id number] [employer]- All Rights Reserved Reading location - IP/workstation name: [email or web address]
--- NOTE | 2019-08-05 10:09 | WOMENS IMAGING REPORT ---
EXAM DESCRIPTION: 3D SCREENING MAMMO BILAT COMPLETED DATE/TIME: 08/05/2019 8:13 am REASON FOR STUDY: Z12.31 SCREENING MAMMO Z12.31 ENCNTR SCREEN MAMMOGRAM FOR MALIGNANT NEOPLASM OF B RE Z78.0 ASYMPTOMATIC MENOPAUSAL STATE COMPARISON: Multiple since 2014 EXAM PARAMETERS: Standard craniocaudal and mediolateral oblique views of each breast recorded using digital acquisition and breast tomosynthesis. Read with the assistance of CAD. .[facility] - [employer] Photograph Retoucher Version 9.2 LIMITATIONS: None. FINDINGS: Findings present which are benign by mammographic criteria. No suspicious masses, calcific ations or architectural distortion. Pertinent benign findings: Benign bilateral breast parenchymal and vascular calcifications Benign mammographic findings may include one or more of the following: Smooth masses, popcorn/rim/coa rse calcifications, asymmetries, post-procedure changes, and lesions with long-standing stability. IMPRESSION: BENIGN MAMMOGRAPHIC FINDINGS. BIRADS 2 BREAST DENSITY: c. The breasts are heterogeneously dense, which may obscure small masses. BIRAD: ASSESSMENT: 2 BENIGN FINDING(S) RECOMMENDATION: ROUTINE SCREENING Please continue yearly bilateral screening mammography/tomosynthesis in July 2020 COMMENT: The patient has been notified of the results by letter per MQSA requirements. Additional no tification policies are in place for contacting patient with suspicious or incomplete findings. Quality ID #225: The [employer] recommends an annual screening mammogram for women aged 40 years or over. This facility utilizes a reminder system to ensure that all patients receive reminder letters, and/or direct phone calls for appointments. This includes reminders for routine scr eening mammograms, diagnostic mammograms, or other Breast Imaging Interventions when appropriate. Th is patient will be placed in the appropriate reminder system. TECHNICAL DOCUMENTATION: FINDING NUMBER: (1) ASSESSMENT: (1) JOB ID: [id number] [employer]- All Rights Reserved Reading location - IP/workstation name: [email or web address]
== END ==
LOC: WI 07:20
PROVIDERS: ATTEND Obstetrics & Gynecology Gynecology
DX: Z12.31 Encounter for screening mammogram for malignant neoplasm of breast (principal); Z78.0 Asymptomatic menopausal state; M81.0 Age-related osteoporosis without current pathological fracture
CPT/HCPCS: 77063; 77067; 77080

== ENCOUNTER 2019-10-27 12:15 | Inpatient (IN) | payer MEDICARE, OTHER ==
[2019-10-27 10:29] LABS: ABSOLUTE EOSINOPHILS # (AUTO) 0.2 10^3/uL (0.0-0.6); ABSOLUTE LYMPHOCYTES (AUTO) 1.2 10^3/uL (0.5-4.7); ABSOLUTE MONOCYTES (AUTO) 0.6 10^3/uL (0.1-1.4); ABSOLUTE NEUT (AUTO) 4.5 10^3/uL (1.7-8.2); BASOPHILS % (AUTO) 0.2 % (0-2); EOSINOPHILS % (AUTO) 2.6 % (0-6); HEMOGLOBIN 11.8 g/dL (12.0-15.5); LYMPHOCYTES % (AUTO) 18.2 % (13-45); MEAN CORPUSCULAR HEMOGLOBIN 26.5 pg (27.0-33.4); MEAN CORPUSCULAR HGB CONC 32.7 g/dL (32.0-36.0); MEAN CORPUSCULAR VOLUME 81 fl (80-97); MONOCYTES % (AUTO) 9.6 % (3-13); PLATELET COUNT 168 10^3/uL (150-450); RED BLOOD COUNT 4.45 10^6/uL (3.72-5.28); RED CELL DISTRIBUTION WIDTH 14.3 % (11.5-14.0); SEGMENTED NEUTROPHILS % (AUTO) 69.4 % (42-78); TOTAL CELLS COUNTED % (AUTO) 100 %; WHITE BLOOD COUNT 6.6 10^3/uL (4.0-10.5)
[2019-10-27 11:07] LABS: ANION GAP 6 (5-19); BLOOD UREA NITROGEN 20 mg/dL (7-20); CALCIUM 9.5 mg/dL (8.4-10.2); CARBON DIOXIDE 27 mmol/L (22-30); CHLORIDE 106 mmol/L (98-107); GLUCOSE 81 mg/dL (75-110); POTASSIUM 4.2 mmol/L (3.6-5.0)
--- NOTE | 2019-10-27 19:43 | EKG REPORT ---
SEVERITY:- ABNORMAL ECG - SINUS RHYTHM LEFT ATRIAL ABNORMALITY : Confirmed by: Miesha Daniels MD 27-Oct-2019 19:43:20
[2019-11-03] MEDS ORDERED: METRONIDAZOLE 500 MG/NS RTU 500 MG/100 ML RTUPB IV ONE (05:10)
[2019-11-03] MEDS ORDERED: CEFAZOLIN INJ 1 GM VIAL ONE (05:10)
[2019-11-03] MEDS ORDERED: FENTANYL CITRATE INJ/PF 100 MCG/2 ML AMPUL ONE (07:00)
[2019-11-03] MEDS ORDERED: MIDAZOLAM 2 MG/2 ML INJ ONE (07:00)
[2019-11-03] MEDS ORDERED: PROPOFOL INJ 200 MG/20 ML VIAL IV ONE (07:00)
[2019-11-03] MEDS ORDERED: ONDANSETRON HCL INJ/PF 4 MG/2 ML SDV ONE (07:01)
[2019-11-03] MEDS ORDERED: ONDANSETRON HCL INJ/PF 4 MG/2 ML SDV IV PRN (09:15)
[2019-11-03] MEDS ORDERED: DIPHENHYDRAMINE HCL 50 MG/ML VIAL IV PRN (09:15)
[2019-11-03] MEDS ORDERED: FENTANYL CITRATE INJ/PF 100 MCG/2 ML AMPUL IV PRN ×3 (09:15)
[2019-11-03] MEDS ORDERED: MEPERIDINE HCL/PF INJ 25 MG/1 ML DISP.SYRIN IV PRN (09:15)
[2019-11-03] MEDS ORDERED: MORPHINE SULFATE 10 MG/ML INJ IV PRN (09:15)
[2019-11-03] MEDS ORDERED: BUPIVACAINE HCL 0.25 % INJ/PF (2.5 MG/1 ML) 30 ML VIAL ONE (09:22)
[2019-11-03] MEDS ORDERED: BUPIVACAINE HCL 0.25 % INJ/PF (2.5 MG/1 ML) 30 ML VIAL INJ ONE ×2 (09:26)
--- NOTE | 2019-11-03 09:44 | Operative Report ---
Nonrecallable Operative Report DATE OF SURGERY: 11/03/19 PREOPERATIVE DIAGNOSIS: Ileostomy stoma polyps POSTOPERATIVE DIAGNOSIS: Ileostomy stomal polyps OPERATION: Biopsy and fulguration of the ileostomy stomal polyps SURGEON: LINCOLN FARIAS ANESTHESIA: Moderate Sedation TISSUE REMOVED OR ALTERED: Multiple polyps from the stoma COMPLICATIONS: None ESTIMATED BLOOD LOSS: 10 cc INTRAOPERATIVE FINDINGS: See note PROCEDURE: Patient was brought to the operating awake alert stable condition placed in the upper table supine position given IV sedation the abdomen was prepped and draped in usual sterile fashion for the procedure. After appropriate timeout site verification the area around the stoma in the right lower quadrant was infiltrated with 1% lidocaine plain. Between the skin edge and the mucosa. There were multiple polyps on the stoma as well as extending onto the dermis at the 7 o'clock position of the stoma. These were all excised with Metzenbaum scissors. And then the skin around the stoma was fulgurated with the Bovie cautery. Once this was completed hemostasis was intact a sterile colostomy appliance was applied. This completed the procedure estimated blood loss was less than 10 cc the patient was awakened in the operating room transferred recovery in stable condi tion no complications
--- NOTE | 2019-11-03 09:45 | Discharge Summary ---
Discharge Summary (SDC) - Discharge Final Diagnosis: Ileostomy stomal polyps Date of Surgery: 11/03/19 Discharge Date: 11/03/19 Condition: Good Referrals: DAVID TRONCOSO MD [Primary Care Provider] - Discharge Diet: As Tolerated Discharge Activity: Activity As Tolerated - Needs a follow-up appointment with me in 7 to 10 days Report the Following to Your Physician Immediately: Unusual Bleeding
[2019-11-03 11:52] VITALS: BP 116/63
== END 2019-11-03 11:10 | disposition home or self-care (01) | DRG 395 ==
LOC: INOR 11-03 06:51 → EDSTATUS 11-03 09:00
PROVIDERS: ADMIT Surgery; ATTEND Surgery
PROC: 0H5 Skin and Breast, Destruction (ICD-10-PCS; principal; 2019-11-03 09:00)
DX: K94.19 Other complications of enterostomy (principal); I10 Essential (primary) hypertension; Z85.42 Personal history of malignant neoplasm of other parts of uterus; Z85.038 Personal history of other malignant neoplasm of large intestine; Z80.0 Family history of malignant neoplasm of digestive organs; Y83.8 Other surgical procedures as the cause of abnormal reaction of the patient, or of later complication, without mention of misadventure at the time of the procedure; Z80.1 Family history of malignant neoplasm of trachea, bronchus and lung; Z79.82 Long term (current) use of aspirin; Z79.899 Other long term (current) drug therapy; Z90.49 Acquired absence of other specified parts of digestive tract; Z88.8 Allergy status to other drugs, medicaments and biological substances; Z93.2 Ileostomy status
CPT/HCPCS: 36415; 80048; 82947; 840; 85025; 86850; 86900; 86901; 88305; 93005; 93010; J0690; J2250; J2405; J2704; J3010; J3490

== ENCOUNTER 2020-03-16 13:15 | Day surgery (SDC) | payer MEDICARE, OTHER ==
[~2020-03-16 13:15] MED LIST changes: -FENTANYL CITRATE INJ/PF 100 MCG/2 ML AMPUL ONE; -FLUMAZENIL INJ 0.5 MG/5 ML VIAL ONE; -GLUCAGON,HUMAN RECOMB 1 MG INJ ONE; -NALOXONE HCL INJ/PF 0.4 MG/1 ML SDV ONE
[2020-03-16] MEDS ORDERED: PROPOFOL INJ 200 MG/20 ML VIAL IV ONE ×3 (14:44→15:46)
--- NOTE | 2020-03-16 16:05 | Operative Report ---
Operative Report DATE OF SURGERY: 03/16/20 Operative Report: Pre-op diagnosis: History of familial adenomatous polyposis Post-op diagnosis: 1. Normal stomach and duodenum 2. Ileal polyp Surgery: Upper endoscopy using the side-viewing endoscope, and ileoscopy through the stoma Medications: As per anesthesia Tissue removed: Ileal polyp Procedure: After informed consent obtained from patient, deep sedation was achieved. The ERCP endoscope was then inserted into the esophagus and advanced into the stomach and further into the duodenum. Detailed examination of the duodenum, stomach and the esophagus was then performed. The pediatric colonoscope was then inserted into the ileostomy stoma and advanced further into the ileum up to 40 cm. It was difficult to advance the endoscope due to sharp turns. Patient tolerated the procedure well. Findings Esophagus: Normal Stomach: Normal Duodenum: Bile duct opening was identified with no surrounding polyps Ileum: 1 cm sessile polyp was identified and was removed with a hot polypectomy snare. No other lesion was identified in the ileum or at the stoma. Plan: Await pathology OPERATION: .
[2020-03-16 16:54] VITALS: BP 120/62
== END 2020-03-16 16:40 | disposition home or self-care (01) ==
LOC: END 13:15
PROVIDERS: ATTEND Internal Medicine Gastroenterology
DX: D13.39 Benign neoplasm of other parts of small intestine (principal); Z93.2 Ileostomy status; Z87.19 Personal history of other diseases of the digestive system; Z09 Encounter for follow-up examination after completed treatment for conditions other than malignant neoplasm; E11.9 Type 2 diabetes mellitus without complications; I10 Essential (primary) hypertension; Z79.899 Other long term (current) drug therapy; Z79.82 Long term (current) use of aspirin; Z85.42 Personal history of malignant neoplasm of other parts of uterus; Z88.8 Allergy status to other drugs, medicaments and biological substances
CPT/HCPCS: 43235; 44382; 88305 ×2; 00813; U0003; J2704; C9803; 813; 87635; J0171

== ENCOUNTER → 2020-03-28 | Outpatient (CLI) | payer MEDICARE, OTHER ==
--- NOTE | 2020-03-28 17:04 | RADIOLOGY REPORT (SQ) ---
EXAM DESCRIPTION: ACUTE ABDOMEN SERIES IMAGES COMPLETED DATE/TIME: 03/28/2020 4:37 pm REASON FOR STUDY: D13.39 BENIGN NEOPLASM OF OTHER PARTS OF SMALL INTESTINE D13.39 BENIGN NEOPLASM O F OTHER PARTS OF SMALL INTESTINE Z93.2 ILEOSTOMY STATUS COMPARISON: None. NUMBER OF VIEWS: Three views. TECHNIQUE: Frontal chest, supine abdomen and upright/decubitus abdomen radiographic images acquired. LIMITATIONS: None. FINDINGS: CHEST: Hyperinflation of the lungs. Biapical slight biapical slight scarring or atelecta sis. Mild prominence of the interstitial markings in the right parahilar region raising the question of chronic versus acute inflammatory changes. Possible infiltrate. FREE AIR: None. No abnormal gas collections. BOWEL GAS PATTERN: Nonobstructive pattern. No dilated loops or air fluid levels. CALCIFICATIONS: No suspicious calcifications. HARDWARE: Multiple surgical metallic clips in the pelvis and the left lower quadrant of the abdomen. SOFT TISSUES: No gross mass or suggestion of organomegaly. BONES: No acute fracture. No worrisome bone lesions. OTHER: No other significant finding. IMPRESSION: 1. Hyperinflation of the lungs. Mild prominence of the interstitial markings in the ri ght parahilar region, raising question of chronic versus acute inflammatory changes. 2. NO RADIOGRAPHIC EVIDENCE FOR ACUTE ABDOMINAL DISEASE. TECHNICAL DOCUMENTATION: JOB ID: [id number] 2010 [employer]- All Rights Reserved Reading location - IP/workstation name: [email or web address]
== END ==
LOC: RAD 16:23
PROVIDERS: ATTEND Internal Medicine Gastroenterology
DX: D13.39 Benign neoplasm of other parts of small intestine (principal); Z93.2 Ileostomy status
CPT/HCPCS: 74022

== ENCOUNTER → 2020-06-28 | Outpatient (CLI) | payer MEDICARE, OTHER ==
--- NOTE | 2020-06-28 15:11 | RADIOLOGY REPORT (SQ) ---
EXAM DESCRIPTION: CAROTID DOPPLER IMAGES COMPLETED DATE/TIME: 06/28/2020 2:08 pm REASON FOR STUDY: CAROTID STENOSIS I65.29 OCCLUSION AND STENOSIS OF UNSPECIFIED CAROTID ARTERY COMPARISON: 11/23/2018 TECHNIQUE: Grayscale ultrasound, Doppler velocity and spectra, and color Doppler images acquired of the extra-cranial carotid and vertebral arteries. Images stored on PACS. LIMITATIONS: None. FINDINGS: RIGHT CAROTID CCA Velocities: Within normal limits. ICA Velocities Peak systolic 82 cm/s. End diastolic 33 cm/s. Proximal ICA/CCA peak systolic ratio 1.07. Intimal thickening LEFT CAROTID CCA Velocities: Within normal limits. ICA Velocities Peak systolic 134 cm/s. End diastolic 55 cm/s. Proximal ICA/CCA peak systolic ratio 2.28. Intimal thickening is seen. The increased velocities in the distal ICA would suggest 50 to 69% steno sis, but no plaque is seen. VERTEBRAL ARTERIES: Antegrade flow. Normal waveforms. SUBCLAVIAN ARTERIES: No finding. OTHER: No other significant finding. IMPRESSION: 50 to 69% stenosis of the left ICA based upon the velocity measurements. However, no si gnificant plaque is seen. COMMENT: Quality ID #195: Velocity criteria are extrapolated from the diameter data as defined by t he Society of Radiologists in Ultrasound Consensus Conference. Radiology 2003: 229; 340-346. TECHNICAL DOCUMENTATION: JOB ID: [id number] 2010 [employer]- All Rights Reserved Reading location - IP/workstation name: [email or web address]
== END ==
LOC: SP 08:37
PROVIDERS: ATTEND Internal Medicine Cardiovascular Disease
DX: I65.22 Occlusion and stenosis of left carotid artery (principal)
CPT/HCPCS: 93880

== ENCOUNTER → 2020-06-28 | Outpatient (CLI) | payer MEDICARE, OTHER ==
[2020-06-28 09:13] LABS: ALBUMIN 4.2 g/dL (3.5-5.0); ALKALINE PHOSPHATASE 124 U/L (38-126); ANION GAP 7 (5-19); ASPARTATE AMINO TRANSFERASE 40 U/L (14-36); BILIRUBIN,DIRECT 0.2 mg/dL (0.0-0.4); BILIRUBIN,TOTAL 0.7 mg/dL (0.2-1.3); BLOOD UREA NITROGEN 22 mg/dL (7-20); CALCIUM 10.2 mg/dL (8.4-10.2); CARBON DIOXIDE 25 mmol/L (22-30); CHLORIDE 110 mmol/L (98-107); CHOLESTEROL 141.07 mg/dL (0-200); GLUCOSE 90 mg/dL (75-110); POTASSIUM 4.5 mmol/L (3.6-5.0); TOTAL PROTEIN 7.2 g/dL (6.3-8.2); TRIGLYCERIDES 56 mg/dL (<150)
[2020-06-28 09:24] LABS: DIRECT LDL 37 mg/dL (<100)
== END ==
LOC: OD 07:34
PROVIDERS: ATTEND Internal Medicine Cardiovascular Disease
DX: I65.29 Occlusion and stenosis of unspecified carotid artery (principal); Z79.899 Other long term (current) drug therapy
CPT/HCPCS: 36415; 80053; 80061

== ENCOUNTER → 2020-08-10 | Outpatient (CLI) | payer MEDICARE, OTHER ==
--- NOTE | 2020-08-10 11:10 | WOMENS IMAGING REPORT ---
EXAM DESCRIPTION: 3D SCREENING MAMMO BILAT IMAGES COMPLETED DATE/TIME: 08/10/2020 7:17 am REASON FOR STUDY: ROUTINE BILATERAL SCREENING;Z12.31 Z12.31 ENCNTR SCREEN MAMMOGRAM FOR MALIGNANT N EOPLASM OF ASHU COMPARISON: 2017 and subsequent. EXAM PARAMETERS: Standard craniocaudal and mediolateral oblique views of each breast recorded using digital acquisition and breast tomosynthesis. Read with the assistance of CAD. .[facility] - [employer] Version 9.2 LIMITATIONS: None. FINDINGS: Findings present which are benign by mammographic criteria. No suspicious masses, calcific ations or architectural distortion. Pertinent benign findings: Scattered stable bilateral benign calcifications. Benign mammographic findings may include one or more of the following: Smooth masses, popcorn/rim/coa rse calcifications, asymmetries, post-procedure changes, and lesions with long-standing stability. IMPRESSION: BENIGN MAMMOGRAPHIC FINDINGS. BIRADS 2 BREAST DENSITY: c. The breasts are heterogeneously dense, which may obscure small masses. BIRAD: ASSESSMENT: 2 BENIGN FINDING(S) RECOMMENDATION: ROUTINE SCREENING COMMENT: The patient has been notified of the results by letter per [place] requirements. Additional no tification policies are in place for contacting patient with suspicious or incomplete findings. Quality ID #225: The [employer] recommends an annual screening mammogram for women aged 40 years or over. This facility utilizes a reminder system to ensure that all patients receive reminder letters, and/or direct phone calls for appointments. This includes reminders for routine scr eening mammograms, diagnostic mammograms, or other Breast Imaging Interventions when appropriate. Th is patient will be placed in the appropriate reminder system. TECHNICAL DOCUMENTATION: FINDING NUMBER: (1) ASSESSMENT: (1) JOB ID: [id number] 2010 [employer]- All Rights Reserved Reading location - IP/workstation name: [email or web address]
== END ==
LOC: WI 07:32
PROVIDERS: ATTEND Physician Assistant
DX: Z12.31 Encounter for screening mammogram for malignant neoplasm of breast (principal)
CPT/HCPCS: 77063; 77067